=== PATIENT | male | born 1980 | race Caucasian/White ===

== ENCOUNTER → 2016-05-11 | Outpatient (CLI) | payer BC ==
--- NOTE | 2016-05-11 16:18 | RADRPT ---
PROCEDURE: XR Knees. CLINICAL INDICATION: Bilateral knee pain. TECHNIQUE: Total of six views. Frontal, oblique, and lateral views of both knees. COMPARISON: No prior study is available for comparison. FINDINGS: There is no fracture or dislocation. The soft tissues are normal. Articular surfaces are intact. There is no lytic or blastic lesion. There is no radiopaque foreign body. IMPRESSION: 1. Unremarkable images of both knees. RPTAT: QQ .Luis Rm MD, MD Date Time Electronically viewed and signed by .Luis Rm MD, MD on 05/11/2016 16:18 .R/
--- NOTE | 2016-05-11 19:35 | HKNOTE ---
DATE OF SERVICE: 05/11/2016 MAIN COMPLAINT: 1. Pain in multiple joints. 2. Pain in the left knee. HISTORY OF MAIN COMPLAINT: The patient is a 35-year-old male who complains of pain in his left knee . The problem started somewhere near February of this past year the day after he had played a [employer] game. He had a sudden onset of pain in his left knee. "It felt like a tearing pain." The pain is localized to the medial side of knee. Then by the next morning, the pain had increased, and he w as limping for 3 days. On day 4, the knee became very swollen, and the pain was intense. He was se en in the emergency room in [place]. Forty milliliters of orange-colored clear fluid was aspirated from the knee. The fluid was sent for cell count, culture and sensitivity. The fluid had a very hi gh white cell count, but there was no growth of bacteria. There were also reportedly no crystals. He subsequently saw an orthopedic surgeon in [place]. The surgeon was quite alarmed and took him to surgery the same day, performing an operative arthroscopy on the knee. The knee has not made a goo d recovery from the arthroscopic surgery. He now is starting to have problems with his right knee. He states that "it feels like it is splint ering." The knee has never swollen. There is no locking and no instability. Note that when this e ntire problem first started, he had a fever of 102. Lately he has also had pain in both elbows and both ankles. Note that after the arthroscopic surgery, the orthopedic surgeon put him on daptomycin through a PICC line, and he had this given daily for 4 weeks. The patient gradually got better. Sean bailey states that today has been the best he has had in 3 months. He called my office for a referral to a parts cataloger. We sent him to Dr. Kimball. Dr. Kimball has ordered multiple tests. The patient states that he has had intensive physical therapy. PHYSICAL EXAMINATION GENERAL: The patient is a fit-looking 35-year-old male. He comes in with his [id number]. VITAL SIGNS: Height 6 feet 4 inches. Weight 255 pounds. Blood pressure 130/80, temperature 97.8. GAIT: The patient walks without a walking aid. LEFT KNEE: The left knee shows normal alignment. Active and passive extension is 0 degrees. Active and passive flexion is 135 degrees. The medial and lateral collateral ligaments and cruciate ligamen ts are intact. Amanuel test is negative. There is 2+ effusion. There is no tenderness, scarring, cre pitus, or cysts. The patella tracks normally. There is no tenderness on the articular surface of the patella or in the patellar groove. The Q angle is normal. RIGHT KNEE: The right knee shows normal alignment. Active and passive extension is 0 degrees. Activ e and passive flexion is 135 degrees. The medial and lateral collateral ligaments and cruciate ligam ents are intact. Amanuel test is negative. There is no effusion, tenderness, scarring, crepitus, or cysts. The patella tracks normally. There is no tenderness on the articular surface of the patella o r in the patellar groove. The Q angle is normal. DISCUSSION: I had a long discussion about this man with Dr. Kimball. Apparently 1 test result has c ome back now which shows that his HLA-B27 is positive. Dr. Kimball feels that this patient either sepulveda s ankylosing spondylitis or he has "a variant of arthritis." We also discussed the possibility of L yme disease, but according to the patient, no case of Lyme disease has been reported in [place] 30 y ears. IMAGING: Plain x-rays of the left knee obtained today were normal. MANAGEMENT: The patient is advised that this is a diagnostic conundrum which is best left to the fi eld of rheumatology. The patient was advised to return to Dr. Kaushik Kimball, who will most certainly be able to determine exactly what has been going on here. Dictated By: ASHLEY FLORIAN/RAFFI Conf#: [id number] DID#: [id number]
== END | disposition home or self-care (01) ==
LOC: HKI 14:36
DX: M25.562 Pain in left knee (principal)
CPT/HCPCS: 73562; G0463